=== PATIENT | female | born 1995 | race Two or more races ===

== ENCOUNTER 2021-06-27 23:28 | Emergency (ER) | payer MEDICAID, OTHER | END 2021-06-27 23:44 | disposition left against medical advice (07) | LOC: EDBD 23:28 → ER 23:33 | DX: Z00.00 Encounter for general adult medical examination without abnormal findings (principal); Z53.21 Procedure and treatment not carried out due to patient leaving prior to being seen by health care provider; Y09 Assault by unspecified means ==